=== PATIENT | female | born 1945 | race Caucasian/White ===

== ENCOUNTER 2017-11-08 08:42 | Day surgery (SDC) | payer MEDICARE ==
[~2017-11-08] VITALS: Ht 162.6 cm; Wt 73.5 kg
[~2017-11-08 08:42] MED LIST: ACYCLOVIR800 MG PO; ALBUTEROL2.5 MG/3 M IN; AMOXICILLIN/CL875 MG OR; AMOXICILLIN500 MG; AMOXICILLIN500 MG PO; ATORVASTATIN CA40 MG PO; AVELOX400 MG PO; AZITHROMYCIN250 MG; BENZONATATE200 MG PO; BRILINTA90 MG PO; CIPROFLOXACN500 MG; CIPROFLOXACN500 MG PO; FLONASE NASAL50 MCG; HYDROCHLOROT12.5 MG PO; INDOMETHACIN50 MG; INDOMETHACIN50 MG PO; LEVAQUIN750 MG PO; LIDOCAINE5 % EX; LISINOP/HCTZ1 TA1 PO; LISINOPRIL10 MG PO; LISINOPRIL20 M1; LISINOPRIL20 M1 OR; LISINOPRIL20 MG PO; LORTAB 5-325 MG1 TAB PO; LORTAB 5/3255 MG PO; METOPROL TAR25 M1 PO; MUCINEX CH100 MG/51 PO; PLAVIX75 MG PO; PRAVASTATIN20 MG; PRAVASTATIN20 MG PO; PREDNISONE10 MG PO; PREDNISONE20 MG PO; PROAIR HFA; PROAIR HFA IN; PROVENTIL0.083 % IN; TRAMADOL HCL50 MG PO; VENTOLIN HFA IN; ZPAK PO
[2017-11-08] MEDS ORDERED: ASPIRIN81 MG PO (09:06)
[2017-11-08] MEDS ORDERED: TYLENOL 500MG TAB PO (09:06)
[2017-11-08 14:01] VITALS: BP 171/77
== END 2017-11-08 12:12 | disposition home or self-care (01) ==
LOC: ENDO 08:42
PROVIDERS: ATTEND Surgery
PROC: 0DBL8ZX Excision of Transverse Colon, Via Natural or Artificial Opening Endoscopic, Diagnostic (ICD-10-PCS; principal; 2017-11-08)
DX: Z12.11 Encounter for screening for malignant neoplasm of colon (principal); D12.3 Benign neoplasm of transverse colon; K57.30 Diverticulosis of large intestine without perforation or abscess without bleeding; Z80.0 Family history of malignant neoplasm of digestive organs

== ENCOUNTER 2021-01-30 12:08 | Emergency (ER) | payer MEDICARE ==
[~2021-01-30] VITALS: Ht 162.6 cm; Wt 61.0 kg
[~2021-01-30 12:08] MED LIST changes: +ASPIRIN81 MG PO; +TYLENOL 500MG TAB PO
[2021-01-30] MEDS ORDERED: BENADRYL 50MG C50 MG PO (13:59)
[2021-01-30] MEDS ORDERED: MEDDOSEPAK PO (13:59)
[2021-01-30] MEDS ORDERED: PEPCID20 MG PO (13:59)
[2021-01-30 14:26] VITALS: BP 138/72
== END 2021-01-30 14:25 | disposition home or self-care (01) ==
LOC: ED 12:08
DX: T78.3XXA Angioneurotic edema, initial encounter (principal); I10 Essential (primary) hypertension; I25.10 Atherosclerotic heart disease of native coronary artery without angina pectoris; I25.2 Old myocardial infarction; F17.210 Nicotine dependence, cigarettes, uncomplicated

== ENCOUNTER 2021-10-04 21:13 | Observation (INO) | payer MEDICARE ==
[~2021-10-04] VITALS: Ht 162.6 cm; Wt 47.0 kg
[~2021-10-04 21:13] MED LIST changes: +BENADRYL 50MG C50 MG PO; +MEDDOSEPAK PO; +PEPCID20 MG PO
--- NOTE | 2021-10-04 21:13 | NUR ---
PT HERE VIA EMS TO ROOM 15
[2021-10-04 22:07] LABS: HEMATOCRIT 43.8 % (37.0-47.0); HEMOGLOBIN 14.1 g/dl (12.0-16.0); IMMATURE GRANULOCYTES 1.1 % (0.0-5.0); MEAN CELL VOLUME 95.6 fL CALC (80.0-100.0); MEAN CORPUSCULAR HGB 30.8 pG CALC (26.0-32.0); MEAN CORPUSCULAR HGB CONC 32.2 g/dL CAL (32.0-36.0); NEUT# 8.02 thou/uL (2.00-7.15); RED BLOOD COUNT 4.58 mill/uL (4.20-5.60)
[2021-10-04 22:25] LABS: ALBUMIN 3.5 g/dL (3.2-5.0); CREATININE 1.2 mg/dL (0.5-1.0); MAGNESIUM 1.9 mg/dL (1.6-2.3); TOTAL PROTEIN 7.5 g/dL (6.3-8.2)
[2021-10-04 22:26] LABS: D-DIMER 1.24 mg/L (0.19-0.60)
[2021-10-04 22:27] LABS: POTASSIUM 3.5 mmol/l (3.5-5.1)
[2021-10-04 22:32] LABS: ACT PARTIAL THROMBO TIME 28.1 SECONDS (20.0-32.5); PROTHROMBIN TIME 10.7 SECONDS (9.0-12.5)
[2021-10-04] MEDS ORDERED: NORVASC5 M1 PO (22:40)
[2021-10-04] MEDS ORDERED: DULOXETINE HCL60 MG PO (22:40)
[2021-10-04] MEDS ORDERED: ATORVASTATIN CA40 MG PO (22:41)
[2021-10-04] MEDS ORDERED: METOPROL TAR25 MG PO (22:42)
[2021-10-04 22:54] LABS: TSH, 3RD GENERATION 1.52 uIU/mL (0.47 - 4.68)
--- NOTE | 2021-10-04 23:30 | NUR ---
PT RESTING WITH SON AT .
--- NOTE | 2021-10-05 00:43 | NUR ---
SON AT BS. PT TO BE ADMITTED.
--- NOTE | 2021-10-05 01:15 | NUR ---
SLEEPING. SON AT BS.
--- NOTE | 2021-10-05 01:40 | NUR ---
TRANSFERRED TO MED SURG.
[2021-10-05 04:32] VITALS: BP 120/77
--- NOTE | 2021-10-05 07:05 | NUR ---
REPORT FROM SRIKANTH PERKINS. ASSUMED PT CARE.
[2021-10-05 08:40] VITALS: BP 116/71
[2021-10-05 10:25] LABS: HEMATOCRIT 40.2 % (37.0-47.0); HEMOGLOBIN 12.8 g/dl (12.0-16.0); IMMATURE GRANULOCYTES 1.8 % (0.0-5.0); MEAN CELL VOLUME 95.9 fL CALC (80.0-100.0); MEAN CORPUSCULAR HGB 30.5 pG CALC (26.0-32.0); MEAN CORPUSCULAR HGB CONC 31.8 g/dL CAL (32.0-36.0); NEUT# 8.63 thou/uL (2.00-7.15); RED BLOOD COUNT 4.19 mill/uL (4.20-5.60)
--- NOTE | 2021-10-05 10:31 | NUR ---
TANIA CLEMENT CALLED FOR UPDATE, PASSCODE PROVIDED. UPDATE GIVEN AT THIS TIME.
[2021-10-05] MEDS ORDERED: METOPROL TAR25 M1 PO (10:37)
[2021-10-05] MEDS ORDERED: DULOXETINE HCL60 MG PO (10:38)
[2021-10-05] MEDS ORDERED: PROAIR HFA108 MCG/AC IN (10:39)
[2021-10-05] MEDS ORDERED: NORVASC5 M1 PO (10:39)
[2021-10-05] MEDS ORDERED: SYMBICORT1 AE1 IN (10:40)
[2021-10-05] MEDS ORDERED: LIPITOR10 M1 PO (10:41)
[2021-10-05] MEDS ORDERED: LORTAB5 PO (10:41)
[2021-10-05 10:58] LABS: ALBUMIN 2.8 g/dL (3.2-5.0); ALKALINE PHOSPHATASE 55 u/l (38-126); BILIRUBIN, TOTAL 0.6 mg/dL (0.0-1.4); BUN 23 mg/dL (8-23); BUN/CREATININE RATIO 23 (12-20 (CALC)); CARBON DIOXIDE 26 mmol/l (22-30); GFR 54 ML/MIN (>=60 (CALC)); GFR FOR AFR.AMER. > 60 ML/MIN (>=60 (CALC)); POTASSIUM 4.1 mmol/l (3.5-5.1); SGOT/AST 35 u/l (9-36); SODIUM 135 mmol/l (137-146)
[2021-10-05 11:00] VITALS: BP 103/69
[2021-10-05 11:04] LABS: ANION GAP 11 (6-22 (CALC)); CHLORIDE 102 mmol/l (95-108)
[2021-10-05 11:09] LABS: C-REACTIVE PROTEIN 22.7 mg/dL (0-0.9)
--- NOTE | 2021-10-05 12:04 | NUR ---
PHYSICIAN AT BEDSIDE TO DISCUSS POC.
--- NOTE | 2021-10-05 13:56 | NUR ---
SON RACQUEL CALLED FOR UPDATE, SON STATES HIS MOTHER CALLED STATING SHE WAS DISCHARGED. PT AWAITING PT CONSULT AT THIS TIME, STABLE OTHERWISE, COULD BE DISCHARGED IF PT DETERMINES SAFE DISCHARGE HOME.
[2021-10-05 15:26] VITALS: BP 106/72
[2021-10-05] MEDS ORDERED: ZPAK PO (15:32)
[2021-10-05] MEDS ORDERED: DEXAMETHASON6 MG PO (15:32)
[2021-10-05] MEDS ORDERED: VENTOLIN HFA108 MCG IN (15:34)
[2021-10-05] MEDS ORDERED: ASPIRIN REGULA325 M1 PO (15:35)
[2021-10-05] MEDS ORDERED: OMNICEF300 MG PO (15:35)
--- NOTE | 2021-10-05 16:50 | NUR ---
IV site discontinued, cath intact. No edema , no redness, voices no discomfort.
--- NOTE | 2021-10-05 17:00 | NUR ---
Discharge instructions given. Patient verbalizes understanding of same. Discharged in stable condition via Wheelchair to Home with family. All belongings sent with pt.
== END 2021-10-05 17:00 | disposition home health service (06) ==
LOC: ED 21:13 → MS2 10-05 00:45
PROVIDERS: Family Medicine; Nurse Practitioner; ADMIT Hospitalist; ATTEND Hospitalist
DX: U07.1 COVID-19 (principal); J12.82 Pneumonia due to coronavirus disease 2019; J44.0 Chronic obstructive pulmonary disease with (acute) lower respiratory infection; J44.1 Chronic obstructive pulmonary disease with (acute) exacerbation; R09.02 Hypoxemia; I10 Essential (primary) hypertension; I25.10 Atherosclerotic heart disease of native coronary artery without angina pectoris; E78.5 Hyperlipidemia, unspecified; R53.1 Weakness; F17.210 Nicotine dependence, cigarettes, uncomplicated; Z95.1 Presence of aortocoronary bypass graft; Z95.5 Presence of coronary angioplasty implant and graft; Z99.81 Dependence on supplemental oxygen
CPT/HCPCS: G0378; J1650; Q9967

== ENCOUNTER 2022-02-14 10:16 | Emergency (ER) | payer MEDICARE ==
[~2022-02-14] VITALS: Ht 162.6 cm; Wt 61.0 kg
[~2022-02-14 10:16] MED LIST changes: +ASPIRIN REGULA325 M1 PO; +DEXAMETHASON6 MG PO; +DULOXETINE HCL60 MG PO; +LIPITOR10 M1 PO; +LORTAB5 PO; +METOPROL TAR25 MG PO; +NORVASC5 M1 PO; +OMNICEF300 MG PO; +PROAIR HFA108 MCG/AC IN; +SYMBICORT1 AE1 IN; +VENTOLIN HFA108 MCG IN
[2022-02-14] MEDS ORDERED: KEFLEX500 MG PO (13:31)
[2022-02-14 14:07] VITALS: BP 129/70
== END 2022-02-14 14:20 | disposition home or self-care (01) ==
LOC: ED 10:16
PROC: 0M930ZZ Drainage of Right Elbow Bursa and Ligament, Open Approach (ICD-10-PCS; principal; 2022-02-14)
DX: M70.21 Olecranon bursitis, right elbow (principal); I10 Essential (primary) hypertension; J44.9 Chronic obstructive pulmonary disease, unspecified; F17.210 Nicotine dependence, cigarettes, uncomplicated

== ENCOUNTER 2022-03-16 12:31 | Emergency (ER) | payer MEDICARE ==
[~2022-03-16] VITALS: Ht 162.6 cm; Wt 61.3 kg
[~2022-03-16 12:31] MED LIST changes: +KEFLEX500 MG PO
[2022-03-16 12:40] VITALS: BP 141/73
[2022-03-16 13:00] VITALS: BP 101/75
[2022-03-16 13:30] VITALS: BP 130/68
[2022-03-16] MEDS ORDERED: NAPROXEN DR375 M1 PO (13:49)
[2022-03-16 14:00] VITALS: BP 131/70
[2022-03-16] MEDS ORDERED: NAPROXEN500 MG PO (14:00)
[2022-03-16 14:22] VITALS: BP 156/76
[2022-03-16 15:21] VITALS: BP 122/64
== END 2022-03-16 14:30 | disposition home or self-care (01) ==
LOC: ED 12:31
DX: M17.12 Unilateral primary osteoarthritis, left knee (principal); I10 Essential (primary) hypertension; J44.9 Chronic obstructive pulmonary disease, unspecified; F17.200 Nicotine dependence, unspecified, uncomplicated

== ENCOUNTER 2022-08-15 19:30 | Emergency (ER) | payer MEDICARE ==
[~2022-08-15] VITALS: Ht 162.6 cm; Wt 57.7 kg
[~2022-08-15 19:30] MED LIST changes: +NAPROXEN DR375 M1 PO; +NAPROXEN500 MG PO
[2022-08-15 20:48] LABS: HEMATOCRIT 44.7 % (37.0-47.0); HEMOGLOBIN 14.5 g/dl (12.0-16.0); IMMATURE GRANULOCYTES 0.2 % (0.0-5.0); MEAN CELL VOLUME 95.9 fL CALC (80.0-100.0); MEAN CORPUSCULAR HGB 31.1 pG CALC (26.0-32.0); MEAN CORPUSCULAR HGB CONC 32.4 g/dL CAL (32.0-36.0); NEUT# 14.91 thou/uL (2.00-7.15); RED BLOOD COUNT 4.66 mill/uL (4.20-5.60)
[2022-08-15 20:54] LABS: ALBUMIN 4.2 g/dL (3.2-5.0); ALKALINE PHOSPHATASE 90 u/l (38-126); AMYLASE 92 u/l (30-110); ANION GAP 10 (6-22 (CALC)); BILIRUBIN, TOTAL 0.7 mg/dL (0.0-1.4); BUN 14 mg/dL (8-23); BUN/CREATININE RATIO 14 (12-20 (CALC)); CARBON DIOXIDE 30 mmol/l (22-30); CHLORIDE 98 mmol/l (95-108); GFR FOR AFR.AMER. > 60 ML/MIN (>=60 (CALC)); GFR OTHER RACES 53 ML/MIN (>=60 (CALC)); POTASSIUM 4.2 mmol/l (3.5-5.1); SGOT/AST 34 u/l (9-36); SODIUM 134 mmol/l (137-146); TOTAL PROTEIN 7.6 g/dL (6.3-8.2)
[2022-08-15 21:06] LABS: MYOGLOBIN 55 ng/mL (0 - 62)
[2022-08-15 21:38] LABS: URINE BILIRUBIN - DIPSTICK NEGATIVE (NEGATIVE); URINE BLOOD DIPSTICK NEGATIVE (NEGATIVE); URINE COLOR YELLOW; URINE GLUCOSE - DIPSTICK NEGATIVE (NEGATIVE); URINE KETONE NEGATIVE (NEGATIVE); URINE LEUK ESTERASE NEGATIVE (NEGATIVE); URINE PROTEIN - DIPSTICK TRACE mg/dL (NEG-TRACE); URINE UROBILINOGEN - DIPSTICK 0.2 E.U./dL (0.2)
[2022-08-15 21:43] LABS: URINE NITRITE - DIPSTICK NEGATIVE (Negative)
[2022-08-15 22:30] VITALS: BP 98/51
[2022-08-15 22:45] VITALS: BP 104/58
[2022-08-15] MEDS ORDERED: KEFLEX500 MG PO (22:54)
[2022-08-15] MEDS ORDERED: ROBITUSSIN AC10 ML PO (22:54)
[2022-08-15 23:00] VITALS: BP 99/57
[2022-08-15 23:15] VITALS: BP 116/60
[2022-08-15 23:31] VITALS: BP 114/60
[2022-08-15 23:45] VITALS: BP 107/55
== END 2022-08-16 00:02 | disposition home or self-care (01) ==
LOC: ED 19:30
PROVIDERS: Emergency Medicine
DX: J06.9 Acute upper respiratory infection, unspecified (principal); I10 Essential (primary) hypertension; J44.9 Chronic obstructive pulmonary disease, unspecified; Z95.1 Presence of aortocoronary bypass graft; F17.200 Nicotine dependence, unspecified, uncomplicated; Z20.822 Contact with and (suspected) exposure to COVID-19

== ENCOUNTER 2022-08-25 17:30 | Inpatient (IN) | payer MEDICARE ==
[~2022-08-25] VITALS: Ht 162.6 cm; Wt 50.0 kg
[2022-08-25] VITALS (22 sets, daily range): BP systolic 97–131; BP diastolic 49–85
[~2022-08-25 17:30] MED LIST changes: +ROBITUSSIN AC10 ML PO
[2022-08-25 18:25] LABS: HEMATOCRIT 46.1 % (37.0-47.0); HEMOGLOBIN 15.1 g/dl (12.0-16.0); IMMATURE GRANULOCYTES 0.3 % (0.0-5.0); MEAN CELL VOLUME 93.5 fL CALC (80.0-100.0); MEAN CORPUSCULAR HGB 30.6 pG CALC (26.0-32.0); MEAN CORPUSCULAR HGB CONC 32.8 g/dL CAL (32.0-36.0); NEUT# 10.32 thou/uL (2.00-7.15); RED BLOOD COUNT 4.93 mill/uL (4.20-5.60); RED CELL DISTRI WIDTH 12.9 % (11.5-15.5)
[2022-08-25 18:42] LABS: ALBUMIN 4.2 g/dL (3.2-5.0); ALKALINE PHOSPHATASE 96 u/l (38-126); ANION GAP 18 (6-22 (CALC)); BILIRUBIN, TOTAL 0.8 mg/dL (0.0-1.4); BUN 24 mg/dL (8-23); BUN/CREATININE RATIO 23 (12-20 (CALC)); CARBON DIOXIDE 27 mmol/l (22-30); CHLORIDE 102 mmol/l (95-108); CREATININE 1.1 mg/dL (0.5-1.0); GFR FOR AFR.AMER. 58 ML/MIN (>=60 (CALC)); GFR OTHER RACES 48 ML/MIN (>=60 (CALC)); POTASSIUM 3.7 mmol/l (3.5-5.1); SGOT/AST 28 u/l (9-36); SODIUM 143 mmol/l (137-146); TOTAL PROTEIN 8.1 g/dL (6.3-8.2)
[2022-08-26] VITALS (27 sets, daily range): BP systolic 99–160; BP diastolic 53–85
[2022-08-26 22:43] LABS: URINE BILIRUBIN - DIPSTICK NEGATIVE (NEGATIVE); URINE BLOOD DIPSTICK NEGATIVE (NEGATIVE); URINE COLOR YELLOW; URINE GLUCOSE - DIPSTICK NEGATIVE (NEGATIVE); URINE KETONE TRACE mg/dL (NEGATIVE); URINE LEUK ESTERASE NEGATIVE (NEGATIVE); URINE PH 5.5 (4.5-8.0); URINE PROTEIN - DIPSTICK TRACE mg/dL (NEG-TRACE); URINE SPECIFIC GRAVITY >=1.030; URINE UROBILINOGEN - DIPSTICK 0.2 E.U./dL (0.2)
[2022-08-26 22:44] LABS: URINE NITRITE - DIPSTICK NEGATIVE (Negative)
[2022-08-27] VITALS (13 sets, daily range): BP systolic 100–150; BP diastolic 63–81
[2022-08-27 05:44] LABS: MEAN CELL VOLUME 94.3 fL CALC (80.0-100.0); MEAN CORPUSCULAR HGB CONC 32.8 g/dL CAL (32.0-36.0); RED BLOOD COUNT 4.07 mill/uL (4.20-5.60); RED CELL DISTRI WIDTH 12.9 % (11.5-15.5)
[2022-08-27 05:45] LABS: HEMATOCRIT 38.4 % (37.0-47.0); HEMOGLOBIN 12.6 g/dl (12.0-16.0)
[2022-08-27 06:23] LABS: ANION GAP 10 (6-22 (CALC)); BUN 26 mg/dL (8-23); BUN/CREATININE RATIO 26 (12-20 (CALC)); CARBON DIOXIDE 26 mmol/l (22-30); CHLORIDE 106 mmol/l (95-108); GFR FOR AFR.AMER. > 60 ML/MIN (>=60 (CALC)); GFR OTHER RACES 53 ML/MIN (>=60 (CALC)); MAGNESIUM 1.9 mg/dL (1.6-2.3); POTASSIUM 3.9 mmol/l (3.5-5.1); SODIUM 138 mmol/l (137-146)
[2022-08-27] MEDS ORDERED: PREDNISONE20 MG PO (09:13)
[2022-08-27] MEDS ORDERED: LEVAQUIN750 M1 PO (09:14)
== END 2022-08-27 13:04 | disposition home or self-care (01) | DRG 193 ==
LOC: ED 17:30 → ED-I 23:01 → ED 23:12 → ICU 23:13
PROVIDERS: Emergency Medicine; ADMIT Internal Medicine; ATTEND Internal Medicine
DX: J18.9 Pneumonia, unspecified organism (principal); J96.21 Acute and chronic respiratory failure with hypoxia; J47.1 Bronchiectasis with (acute) exacerbation; J47.0 Bronchiectasis with acute lower respiratory infection; I10 Essential (primary) hypertension; I25.10 Atherosclerotic heart disease of native coronary artery without angina pectoris; F17.200 Nicotine dependence, unspecified, uncomplicated; E78.5 Hyperlipidemia, unspecified; F41.9 Anxiety disorder, unspecified; F32.A Depression, unspecified; Z95.1 Presence of aortocoronary bypass graft; Z95.5 Presence of coronary angioplasty implant and graft; Z20.822 Contact with and (suspected) exposure to COVID-19
CPT/HCPCS: J1650; Q9967

== ENCOUNTER 2022-09-17 17:25 | Emergency (ER) | payer MEDICARE ==
[~2022-09-17] VITALS: Ht 162.6 cm; Wt 55.0 kg
[~2022-09-17 17:25] MED LIST changes: +LEVAQUIN750 M1 PO
[2022-09-17 18:17] LABS: BASO% 0.5 % (0-3); EOS% 2.6 % (0-8); HEMATOCRIT 38.2 % (37.0-47.0); HEMOGLOBIN 11.7 g/dl (12.0-16.0); IMMATURE GRANULOCYTES 0.2 % (0.0-5.0); LYMPH% 12.8 % (15-41); MEAN CORPUSCULAR HGB 29.7 pG CALC (26.0-32.0); MEAN CORPUSCULAR HGB CONC 30.6 g/dL CAL (32.0-36.0); MONO% 13.6 % (2-13); NEUT# 9.05 thou/uL (2.00-7.15); NEUT% 70.3 % (42-76); RED BLOOD COUNT 3.94 mill/uL (4.20-5.60)
[2022-09-17 18:34] LABS: ALBUMIN 3.8 g/dL (3.2-5.0); ALKALINE PHOSPHATASE 91 u/l (38-126); ANION GAP 9 (6-22 (CALC)); BUN 19 mg/dL (8-23); BUN/CREATININE RATIO 16 (12-20 (CALC)); CARBON DIOXIDE 32 mmol/l (22-30); CHLORIDE 100 mmol/l (95-108); CREATININE 1.2 mg/dL (0.5-1.0); GFR FOR AFR.AMER. 52 ML/MIN (>=60 (CALC)); GFR OTHER RACES 43 ML/MIN (>=60 (CALC)); SGOT/AST 22 u/l (9-36); SODIUM 136 mmol/l (137-146)
[2022-09-17 18:35] LABS: BILIRUBIN, TOTAL 0.3 mg/dL (0.0-1.4)
[2022-09-17 19:11] LABS: URINE BILIRUBIN - DIPSTICK NEGATIVE (NEGATIVE); URINE BLOOD DIPSTICK NEGATIVE (NEGATIVE); URINE COLOR YELLOW; URINE GLUCOSE - DIPSTICK NEGATIVE (NEGATIVE); URINE KETONE NEGATIVE (NEGATIVE); URINE LEUK ESTERASE NEGATIVE (NEGATIVE); URINE PROTEIN - DIPSTICK TRACE mg/dL (NEG-TRACE); URINE UROBILINOGEN - DIPSTICK 0.2 E.U./dL (0.2)
[2022-09-17 19:13] LABS: URINE NITRITE - DIPSTICK NEGATIVE (Negative)
[2022-09-17 19:32] VITALS: BP 136/52
[2022-09-17 19:45] VITALS: BP 126/67
[2022-09-17 20:20] VITALS: BP 126/67
== END 2022-09-17 20:24 | disposition home or self-care (01) ==
LOC: ED 17:25
PROVIDERS: Family Medicine
DX: R55 Syncope and collapse (principal); R44.3 Hallucinations, unspecified; I10 Essential (primary) hypertension; I25.2 Old myocardial infarction; Z95.1 Presence of aortocoronary bypass graft; Z95.5 Presence of coronary angioplasty implant and graft; J44.9 Chronic obstructive pulmonary disease, unspecified

== ENCOUNTER 2024-09-20 10:50 | Emergency (ER) | payer MEDICARE ==
[~2024-09-20] VITALS: Ht 162.6 cm; Wt 61.0 kg
[2024-09-20] MEDS ORDERED: predniSONE 20 MG/TAB PO ONE (11:30)
[2024-09-20] MEDS ORDERED: COLCHICINE 0.6 MG/TAB PO ONE (11:30)
[2024-09-20] MEDS ORDERED: KETOROLAC TROMETHAMINE 30 MG/ML SDV IM ONE (11:30)
[2024-09-20] MEDS ORDERED: MITIGARE0.6 MG PO (12:54)
[2024-09-20] MEDS ORDERED: PREDNISONE50 MG PO (12:54)
[2024-09-20] MEDS ORDERED: NAPROXEN500 MG PO (12:54)
[2024-09-20 13:02] VITALS: BP 123/64
== END 2024-09-20 13:07 | disposition home or self-care (01) ==
LOC: ED 10:50
DX: M10.032 Idiopathic gout, left wrist (principal); I10 Essential (primary) hypertension; J44.9 Chronic obstructive pulmonary disease, unspecified; Z95.1 Presence of aortocoronary bypass graft